=== PATIENT | male | born 1985 | race Hispanic/Latino ===

== ENCOUNTER 2024-09-30 07:35 | Emergency (ER) | payer SELFPAY ==
[2024-09-30] MEDS ORDERED: ONDANSETRON 4 MG/2 ML VIAL ONE (08:06)
[2024-09-30] MEDS ORDERED: NA CHLORIDE 0.9% 1,000 ML ONE (08:07)
[2024-09-30 08:27] LABS: Absolute Eosinophils 0.2 K/uL (0-0.5); Absolute Lymphocytes (CBC) 2.2 K/uL (0.7-4.9); Absolute Monocytes 0.4 K/uL (0.1-1.3); Absolute Neutrophil 3.5 K/uL (1.8-8.0); Basophils % 0.7 % (0-1.3); Eosinophils % 3.6 % (0-4.4); Hematocrit 43.1 % (39.6-49.0); Hemoglobin 14.6 g/dL (13.6-17.9); Lymphocytes % 34.3 % (15.3-44.8); MCH 28.5 pg (27.0-35.0); MCHC 33.8 g/dL (32.0-36.0); MCV 84.4 fL (80-100); MPV 8.1 fL (7.6-11.3); Monocytes % 6.7 % (3.3-12.3); Neutrophils % 54.7 % (41.7-73.7); Nucleated Red Blood Cells % 0.1 % (0-0); Platelets 263 thou/uL (152-406); RBC Red Blood Cell Count 5.11 M/uL (4.33-5.43); Red Cell Distribution Width 13.6 % (12.1-15.2)
[2024-09-30 08:34] LABS: Specific Gravity 1.023 (1.005-1.030); Sqamous Epithelial <5 /HPF (None Seen); Transitional Epithelial <5 /HPF (None Seen); Urine Bacteria None Seen /HPF (<20); Urine Bilirubin NEGATIVE (Negative); Urine Blood 2+ (Negative); Urine Clarity Clear (Clear); Urine Color Light-Yellow (Yellow); Urine Culture Reflex Order NOT NEEDED; Urine Glucose NEGATIVE (Negative); Urine Ketones NEGATIVE (Negative); Urine Microscopic Reflex YN ORDER UMIC; Urine Mucus Slight /HPF (None Seen); Urine Nitrite NEGATIVE (Negative); Urine Protein TRACE (Negative); Urine RBC 21-50 /HPF (None Seen); Urine Urobilinogen Normal (Normal); Urine pH 6.5 (5.0-7.0)
[2024-09-30 08:44] LABS: Albumin 3.4 g/dL (3.4-5.0); Albumin/Globulin Ratio 0.9 (1.1-1.8); Anion Gap 7.6 mEq/L (5.0-15.0); Bilirubin Total 0.4 mg/dL (0.2-1.0); Globulin 3.8 g/dL (2.3-3.5); Potassium 3.6 mEq/L (3.5-5.1); Protein, Total 7.2 g/dL (6.4-8.2)
--- NOTE | 2024-09-30 09:41 | EDPHYS ---
Physician Documentation [facility] Name: Rasta Hodges Age: 39 yrs Sex: Male : 1985 Arrival Date: 09/30/2024 Time: 07:35 Bed 18 Private MD: RUFINO Physician Dylan Muñoz HPI: 09/30 09:35 This 39 yrs old Male presents to ER via Ambulatory with complaints of leonard Nausea/Vomiting. 09:35 The patient presents to the emergency department with nausea, vomiting, that is leonard intermittent. Onset: The symptoms/episode began/occurred 3 day(s) ago. Possible causes: unknown. The symptoms are aggravated by nothing. Associated signs and symptoms: The patient has no apparent associated signs or symptoms. Severity of symptoms: At their worst the symptoms were mild in the emergency department the symptoms are unchanged. The patient has not experienced similar symptoms in the past. Historical: - Allergies: 07:56 PENICILLINS; ss - Home Meds: 07:56 None [Active]; ss - PMHx: 07:56 None; ss - PSHx: 07:56 None; ss - Immunization history:: Client reports receiving the 2nd dose of the Covid vaccine. - Infectious Disease History:: Denies. - Social history:: Smoking status: Reported history of juuling and/or vaping. ROS: 09:36 Constitutional: Negative for fever, chills, and weight loss, Eyes: Negative for injury, leonard pain, redness, and discharge, ENT: Negative for injury, pain, and discharge, Neck: Negative for injury, pain, and swelling, Cardiovascular: Negative for chest pain, palpitations, and edema, Respiratory: Negative for shortness of breath, cough, wheezing, and pleuritic chest pain, Back: Negative for injury and pain, : Negative for injury, bleeding, discharge, and swelling, MS/Extremity: Negative for injury and deformity, Skin: Negative for injury, rash, and discoloration, Neuro: Negative for headache, weakness, numbness, tingling, and seizure, Psych: Negative for depression, anxiety, suicide ideation, homicidal ideation, and hallucinations, Allergy/Immunology: Negative for hives, rash, and allergies, Endocrine: Negative for neck swelling, polydipsia, polyuria, polyphagia, and marked weight changes, Hematologic/Lymphatic: Negative for swollen nodes, abnormal bleeding, and unusual bruising, 09:36 Abdomen/GI: Positive for abdominal pain, abdominal cramps, of the right upper quadrant, left upper quadrant, right lower quadrant and left lower quadrant, Exam: 09:36 Constitutional: This is a well developed, well nourished patient who is awake, alert, leonard and in no acute distress. Head/Face: Normocephalic, atraumatic. Eyes: Pupils equal round and reactive to light, extra-ocular motions intact. Lids and lashes normal. Conjunctiva and sclera are non-icteric and not injected. Cornea within normal limits. Periorbital areas with no swelling, redness, or edema. ENT: Nares patent. No nasal discharge, no septal abnormalities noted. Tympanic membranes are normal and external auditory canals are clear. Oropharynx with no redness, swelling, or masses, exudates, or evidence of obstruction, uvula midline. Mucous membranes moist. Neck: Trachea midline, no thyromegaly or masses palpated, and no cervical lymphadenopathy. Supple, full range of motion without nuchal rigidity, or vertebral point tenderness. No Meningismus. Chest/axilla: Normal chest wall appearance and motion. Nontender with no deformity. No lesions are appreciated. Cardiovascular: Regular rate and rhythm with a normal S1 and S2. No gallops, murmurs, or rubs. Normal PMI, no JVD. No pulse deficits. Respiratory: Lungs have equal breath sounds bilaterally, clear to auscultation and percussion. No rales, rhonchi or wheezes noted. No increased work of breathing, no retractions or nasal flaring. Abdomen/GI: Soft, non-tender, with normal bowel sounds. No distension or tympany. No guarding or rebound. No evidence of tenderness throughout. Back: No spinal tenderness. No costovertebral tenderness. Full range of motion. Male : Normal genitalia with no discharge or lesions. Skin: Warm, dry with normal turgor. Normal color with no rashes, no lesions, and no evidence of cellulitis. MS/ Extremity: Pulses equal, no cyanosis. Neurovascular intact. Full, normal range of motion., bilateral aka Neuro: Awake and alert, GCS 15, oriented to person, place, time, and situation. Cranial nerves II-XII grossly intact. Motor strength 5/5 in all extremities. Sensory grossly intact. Cerebellar exam normal. Normal gait. Psych: Awake, alert, with orientation to person, place and time. Behavior, mood, and affect are within normal limits. 09:36 Abdomen/GI: Inspection: abdomen appears normal, Bowel sounds: normal, Palpation: abdomen is soft and non-tender, Rectal exam: the exam is deferred, Liver: no appreciated palpable abnormalities, Hernia: not appreciated, Vital Signs: 07:54 BP 134 / 95; Pulse 80; Resp 16; Temp 97.8(TE); Pulse Ox 100% on R/A; Weight 84.82 kg; ss Height 5 ft. 5 in. ; Pain 0/10; 09:57 BP 130 / 88; Pulse 71; Resp 17; Pulse Ox 99% on R/A; rs5 07:54 Body Mass Index 31.12 (84.82 kg, 165.1 cm) ss 07:54 Pain Scale: Adult ss MDM: 07:42 Medical Screening Exam initiated leonard 09:37 Differential diagnosis: Nonspecific abd pain. Data reviewed: vital signs, nurses notes, [facility] lab test result(s), CBC, electrolytes, hepatic panel. Consideration of Admission/Observation Escalation of care including admission/observation considered. I considered the following discharge prescriptions or medication management in the emergency department Medications were administered in the Emergency Department. See MAR. Test considered but Not performed: CT: no ct abd/pel. Historians other than the Patient: pt well informed. Care significantly affected by the following chronic conditions: none. Counseling: I had a detailed discussion with the patient and/or guardian regarding the historical points, exam findings, and any diagnostic results supporting the discharge/admit diagnosis, lab results, the need for outpatient follow up, for definitive care, a family practitioner. 09/30 07:45 Order name: CBC with Diff; Complete Time: 09:30 [facility] 09/30 07:45 Order name: CMP; Complete Time: 09:30 [facility] 09/30 07:45 Order name: Lipase; Complete Time: 09:30 [facility] 09/30 07:45 Order name: Urinalysis w/ reflexes; Complete Time: 09:30 [facility] 09/30 07:45 Order name: IV Saline Lock; Complete Time: 08:16 [facility] 09/30 07:45 Order name: Labs collected and sent; Complete Time: 08:16 [facility] 09/30 09:35 Order name: PO challenge; Complete Time: 09:42 [facility] Administered Medications: 08:16 Drug: Ondansetron IVP 4 mg IVP once; over 2 minutes Route: IVP; Site: right antecubital;bp 09:49 Follow up: Response: No adverse reaction bp 08:16 Drug: NS 0.9% IV 1000 ml IV at 1 bolus Per protocol; to be given as a bolus over 60 bp minutes Route: IV; Rate: 1 bolus; Site: right antecubital; 09:49 Follow up: IV Status: Completed infusion bp Disposition Summary: 09/30/24 09:40 Discharge Ordered Notes: Location: Home [facility] Problem: new leonard Symptoms: have improved leonard Condition: Stable leonard Diagnosis - Vomiting leonard - Nausea leonard Followup: leonard - With: Private Physician - When: 2 - 3 days - Reason: Recheck today's complaints, Continuance of care, Re-evaluation by your physician Discharge Instructions: - Discharge Summary Sheet leonard - Nausea and Vomiting, Adult leonard - Nausea, Adult leonard - Nausea and Vomiting, Adult, [id number] [facility] Forms: - Medication Reconciliation Form [facility] - Antibiotic Education leonard - Prescription Opioid Use leonard - Patient Portal Instructions [facility] - Leadership Thank You Letter [facility] - Work release form rs5 Prescriptions: - ondansetron 4 mg Oral Tablet,disintegrating - take 1 tablet ORAL route every 6-8 hours for 5 days; 20 tablet; Refills: 0, [facility] Product Selection Permitted - Pepcid 20 mg Oral Tablet - take 1 tablet ORAL route every 12 hours for 10 days; 20 tablet; Refills: 0, [facility] Product Selection Permitted Signatures: Dispatcher [employer] Dylan Paz MD MD cha Blanchard, Shelby, DAVID RN Avinash Lopez RN RN bp Corrections: (The following items were deleted from the chart) 07:56 07:56 Allergies: No Known Allergies; [facility]
--- NOTE | 2024-09-30 09:41 | ER ---
Nurse's Notes [facility] Name: Rasta Hodges Age: 39 yrs Sex: Male : 1985 Arrival Date: 09/30/2024 Time: 07:35 Bed 18 Private MD: Diagnosis: Vomiting;Nausea Presentation: 09/30 07:54 Chief complaint: Patient states: N/V that began this morning. Pt reports he ate ss Thanksgiving leftovers last night, and he feels that may be the cause. Coronavirus screen: Client denies travel out of the [place] in the last 14 days. Ebola Screen: Patient denies exposure to infectious person. Patient denies travel to an Ebola-affected area in the 21 days before illness onset. Initial Sepsis Screen: Does the patient meet any 2 criteria? No. Patient's initial sepsis screen is negative. Does the patient have a suspected source of infection? No. Patient's initial sepsis screen is negative. Risk Assessment: Do you want to hurt yourself or someone else? Patient reports no desire to harm self or others. Onset of symptoms was September 30, 2024. 07:54 Method Of Arrival: Ambulatory ss 07:54 Acuity: JOSHUA 3 ss Triage Assessment: 07:59 General: Appears in no apparent distress. Behavior is cooperative, appropriate for age, bp anxious. Pain: Denies pain. EENT: No deficits noted. Neuro: No deficits noted. Cardiovascular: No deficits noted. Respiratory: No deficits noted. GI: Reports nausea, vomiting. : No signs and/or symptoms were reported regarding the genitourinary system. Derm: No deficits noted. Musculoskeletal: No deficits noted. Historical: - Allergies: 07:56 PENICILLINS; ss - Home Meds: 07:56 None [Active]; ss - PMHx: 07:56 None; ss - PSHx: 07:56 None; ss - Immunization history:: Client reports receiving the 2nd dose of the Covid vaccine. - Infectious Disease History:: Denies. - Social history:: Smoking status: Reported history of juuling and/or vaping. Screenin:00 [facility] ED Fall Risk Assessment (Adult) History of falling in the last 3 months, bp including since admission No falls in past 3 months (0 pts) Confusion or Disorientation No (0 pts) Intoxicated or Sedated No (0 pts) Impaired Gait No (0 pts) Mobility Assist Device Used No (0 pt) Altered Elimination No (0 pt) Score/Fall Risk Level 0 - 2 = Low Risk. Abuse screen: Denies threats or abuse. Denies injuries from another. Nutritional screening: No deficits noted. Tuberculosis screening: No symptoms or risk factors identified. Assessment: 08:00 General: SEE TRIAGE NOTE. GI: Abdomen is non-distended. bp 09:47 Reassessment: Patient appears in no apparent distress at this time. bp 09:58 Reassessment: Patient and/or family updated on plan of care and expected duration. Pain rs5 level reassessed. Patient is alert, oriented x 3, equal unlabored respirations, skin warm/dry/pink. Patient denies pain at this time. Patient states feeling better. Patient states symptoms have improved. Vital Signs: 07:54 BP 134 / 95; Pulse 80; Resp 16; Temp 97.8(TE); Pulse Ox 100% on R/A; Weight 84.82 kg; ss Height 5 ft. 5 in. ; Pain 0/10; 09:57 BP 130 / 88; Pulse 71; Resp 17; Pulse Ox 99% on R/A; rs5 07:54 Body Mass Index 31.12 (84.82 kg, 165.1 cm) ss 07:54 Pain Scale: Adult ss ED Course: 07:39 Patient arrived in ED. mg5 07:42 Dylan Muñoz MD is Attending Physician. leonard 07:56 Triage completed. ss 07:56 Arm band placed on right wrist. ss 07:59 Avinash Ball, DAVID is Primary Nurse. bp 08:00 Patient has correct armband on for positive identification. bp 08:16 Initial lab(s) drawn, by il, sent to lab. Inserted saline lock: 20 gauge in right bp antecubital area, using aseptic technique. Blood collected. Flushed with 10 mL NS. 09:47 Provided Education on: N/A. bp 09:47 No provider procedures requiring assistance completed. IV discontinued, intact, bp bleeding controlled, No redness/swelling at site. Pressure dressing applied. Administered Medications: 08:16 Drug: Ondansetron IVP 4 mg IVP once; over 2 minutes Route: IVP; Site: right antecubital;bp 09:49 Follow up: Response: No adverse reaction bp 08:16 Drug: NS 0.9% IV 1000 ml IV at 1 bolus Per protocol; to be given as a bolus over 60 bp minutes Route: IV; Rate: 1 bolus; Site: right antecubital; 09:49 Follow up: IV Status: Completed infusion bp Medication: 08:00 VIS not applicable for this client. bp Outcome: 09:40 Discharge ordered by . leonard 09:47 Discharged to home ambulatory, with family, bp 09:47 Condition: stable 09:47 Discharge instructions given to patient, Instructed on discharge instructions, follow up and referral plans. medication usage, Demonstrated understanding of instructions, follow-up care, medications, Prescriptions given X 2, 09:58 Patient left the ED. rs5 Signatures: Dylan Muñoz MD MD cha Blanchard, Shelby, RN RN Avinash Lopez RN RN Les Thompson, RN RN rs5 Susan Garcia mg5 Corrections: (The following items were deleted from the chart) 07:56 07:56 Allergies: No Known Allergies; [facility] 09:49 09:47 Discharge instructions given to patient, Instructed on discharge instructions, bp follow up and referral plans. medication usage, Demonstrated understanding of instructions, follow-up care, medications, Prescriptions given X 1, bp
[2024-09-30 12:25] VITALS: TEMP 97.8
[2024-09-30 12:31] VITALS: BP 130/88; O2SAT 99
== END 2024-09-30 09:58 | disposition home or self-care (01) ==
LOC: ER 07:35
DX: R11.2 Nausea with vomiting, unspecified (principal); Z88.0 Allergy status to penicillin
CPT/HCPCS: 36415; 80053; 81001; 83690; 85025; 96361; 96374; 99284; J2405; J7030